=== PATIENT | female | born 1945 | race Caucasian/White ===

== ENCOUNTER 2016-04-07 14:28 | Emergency (ER) | payer MEDICARE ==
[2016-04-07] MEDS ORDERED: OPTIRAY 350 100 ML VIAL HMH IV ONE (14:29)
[2016-04-07] MEDS ORDERED: SODIUM CHLORIDE 0.9% 1,000 ML ONE (18:41)
== END 2016-04-07 23:51 | disposition other institution (70) ==
LOC: ER 14:28
CPT/HCPCS: 36415 ×2; 74177 ×2; 80053 ×2; 85025 ×2; 87071 ×2; 87077 ×2; 87186 ×2; 96360 ×2; 99284; Q9967